=== PATIENT | male | born 1960 | race Caucasian/White ===

== ENCOUNTER 2016-05-07 05:52 | Day surgery (SDC) | payer MEDICARE ==
[~2016-05-07] VITALS: Ht 165.1 cm; Wt 64.0 kg
[~2016-05-07 05:52] MED LIST: ACET325T14 PO; CARV6.252 PO; ENOX60DI3 SQ; GABA300C10 PO; ISOS20TA58 PO; MORP60TA PO; OXYC5TAB3 PO; POLY17PO5 PO; SIMV40TA3 PO; TRAZ150T68 PO; WARF7.5T PO-COUM
[2016-05-07 06:47] VITALS: BP 153/90
[2016-05-07 06:54] VITALS: BP 153/90
[2016-05-07] MEDS ORDERED: MIDAZOLAM 1 MG/ML, 2ML ONE (06:59)
[2016-05-07] MEDS ORDERED: FENTANYL PF 250 MCG/5ML ONE (06:59)
== END 2016-05-07 08:45 | disposition home or self-care (01) ==
LOC: OUT 05:52
PROVIDERS: ATTEND Pain Medicine Interventional Pain Medicine
DX: Z02.9 Encounter for administrative examinations, unspecified (principal)
CPT/HCPCS: J2250; J3010